=== PATIENT | female | born 1960 | race Caucasian/White ===

== ENCOUNTER → 2016-11-16 | Outpatient (CLI) | payer OTHER | LOC: FIMAGING 09:39 | DX: Z13.1 Encounter for screening for diabetes mellitus (principal) | CPT/HCPCS: G0202 ==

== ENCOUNTER → 2017-12-10 | Outpatient (CLI) | payer OTHER | LOC: FIMAGING 08:44 | PROVIDERS: ATTEND Obstetrics & Gynecology Gynecology | DX: Z12.31 Encounter for screening mammogram for malignant neoplasm of breast (principal) ==

== ENCOUNTER → 2018-11-20 | Outpatient (CLI) | payer OTHER | LOC: FIMAGING 19:33 | DX: D44.6 Neoplasm of uncertain behavior of carotid body (principal); Z15.09 Genetic susceptibility to other malignant neoplasm; Z90.710 Acquired absence of both cervix and uterus ==

== ENCOUNTER → 2018-11-22 | Outpatient (CLI) | payer OTHER | LOC: FIMAGING 17:36 | DX: D44.6 Neoplasm of uncertain behavior of carotid body (principal); Z15.09 Genetic susceptibility to other malignant neoplasm; Z15.89 Genetic susceptibility to other disease ==

== ENCOUNTER → 2018-11-27 | Outpatient (CLI) | payer OTHER | LOC: FIMAGING 07:29 | DX: D44.6 Neoplasm of uncertain behavior of carotid body (principal); Z15.89 Genetic susceptibility to other disease; Z15.09 Genetic susceptibility to other malignant neoplasm ==

== ENCOUNTER → 2018-12-02 | Outpatient (CLI) | payer OTHER | LOC: FIMAGING 07:39 | DX: Z15.89 Genetic susceptibility to other disease (principal); Z15.09 Genetic susceptibility to other malignant neoplasm; M50.322 Other cervical disc degeneration at C5-C6 level; Z86.03 Personal history of neoplasm of uncertain behavior ==

== ENCOUNTER → 2019-01-03 | Outpatient (CLI) | payer OTHER | LOC: FIMAGING 15:28 ==